=== PATIENT | male | born 1985 | race Caucasian/White ===

== ENCOUNTER 2017-05-24 12:33 | Emergency (ER) | payer OTHER ==
[~2017-05-24] VITALS: Ht 152.4 cm; Wt 60.0 kg
--- NOTE | 2017-05-24 12:51 | PD ---
HPI Chief Complaint: ba Time Seen by Provider: 12:43 Travel History International Travel<30 days: No Contact w/Intl Traveler<30days: No Traveled to known affect area: No History of Present Illness HPI 31-year-old male with history of opiate dependency, presents to emergency department under [place] act for psychiatric evaluation. Patient contracted argument with his mother. He then sent her text messages threatening to hang himself. She contacted police and the patient was brought in for evaluation. Patient states he did say this but he did not need them. He was trying to scare his mother. Denies any suicidal homicidal ideations. States he last used heroin yesterday and is concerned he is going to go into withdrawal while here. She has no other acute medical needs at this time. [facility] Past Medical History Medical History: Denies Significant Hx Social History Alcohol Use: Yes Tobacco Use: Yes Substance Use: Yes Allergies-Medications (Allergen,Severity, Reaction): Coded Allergies: No Known Allergies (Unverified , 05/24/17) Reported Meds & Prescriptions Reported Meds & Active Scripts Active Reported Aspercreme Heat Topical (Menthol Topical) 10 % Gel 1 Applic TOPICAL Q4H PRN Gabapentin 300 Mg Cap 300 Mg PO TID Methocarbamol 500 Mg Tab 250 Mg PO QID PRN Paroxetine (Paroxetine HCl) 20 Mg Tab 20 Mg PO DAILY Seroquel (Quetiapine Fumarate) 50 Mg Tab 50 Mg PO HS Review of Systems Except as stated in HPI: all other systems reviewed are Neg Physical Exam Narrative GENERAL: Well-nourished male patient, ambulatory and in no acute distress. SKIN: Focused skin assessment warm/dry. HEAD: Atraumatic. Normocephalic. EYES: Pupils equal and round. No scleral icterus. No injection or drainage. ENT: No nasal bleeding or discharge. Mucous membranes pink and moist. NECK: Trachea midline. No JVD. CARDIOVASCULAR: Regular rate and rhythm. No murmur appreciated. RESPIRATORY: No accessory muscle use. Clear to auscultation. Breath sounds equal bilaterally. GASTROINTESTINAL: Abdomen soft, non-tender, nondistended. Hepatic and splenic margins not palpable. MUSCULOSKELETAL: No obvious deformities. No clubbing. No cyanosis. No edema. NEUROLOGICAL: Awake and alert. No obvious cranial nerve deficits. Motor grossly within normal limits. Normal speech. Data Data Last Documented VS Vital Signs Date Time Temp Pulse Resp B/P (MAP) Pulse Ox O2 Delivery O2 Flow Rate FiO2 05/24/17 15:46 85 18 125/82 (96) 98 Room Air 05/24/17 14:41 97.6 Orders Orders Complete Blood Count With Diff (05/24/17 12:51) Basic Metabolic Panel (Bmp) (05/24/17 12:51) Psych Screen (05/24/17 12:51) Drug Screen, Random Urine (05/24/17 12:51) Alcohol (Ethanol) (05/24/17 12:51) Labs Laboratory Tests Test 05/24/17 12:55 05/24/17 13:00 Urine Opiates Screen POS Urine Barbiturates Screen NEG Urine Amphetamines Screen NEG Urine Benzodiazepines Screen NEG Urine Cocaine Screen POS Urine Cannabinoids Screen POS White Blood Count 8.6 TH/MM3 Red Blood Count 5.65 MIL/MM3 Hemoglobin 16.1 GM/DL Hematocrit 48.6 % Mean Corpuscular Volume 86.0 FL Mean Corpuscular Hemoglobin 28.6 PG Mean Corpuscular Hemoglobin Concent 33.2 % Red Cell Distribution Width 13.9 % Platelet Count 345 TH/MM3 Mean Platelet Volume 7.4 FL Neutrophils (%) (Auto) 76.4 % Lymphocytes (%) (Auto) 13.6 % Monocytes (%) (Auto) 9.0 % Eosinophils (%) (Auto) 0.2 % Basophils (%) (Auto) 0.8 % Neutrophils # (Auto) 6.5 TH/MM3 Lymphocytes # (Auto) 1.2 TH/MM3 Monocytes # (Auto) 0.8 TH/MM3 Eosinophils # (Auto) 0.0 TH/MM3 Basophils # (Auto) 0.1 TH/MM3 CBC Comment DIFF FINAL Differential Comment Blood Urea Nitrogen 16 MG/DL Creatinine 1.06 MG/DL Random Glucose 171 MG/DL Calcium Level 9.9 MG/DL Sodium Level 137 MEQ/L Potassium Level 4.5 MEQ/L Chloride Level 102 MEQ/L Carbon Dioxide Level 29.8 MEQ/L Anion Gap 5 MEQ/L Estimat Glomerular Filtration Rate 81 ML/MIN Ethyl Alcohol Level LESS THAN 3 MG/DL MDM Medical Decision Making Medical Screen Exam Complete: Yes Emergency Medical Condition: Yes Medical Record Reviewed: Yes Differential Diagnosis Mood disorder versus personality disorder versus polysubstance abuse versus adjustment reaction disorder Narrative Course 31-year-old male presents to the emergency department under [place] act for psychiatric evaluation. Patient appears without distress. His lab work is without acute concern. He is found to have opiates, cocaine, and cannabinoids on his toxicology. He is medically cleared at this time to undergo psychiatric screening for further evaluation and disposition. Mental health screening discussed with the patient. Psychiatric screen ordered. Diagnosis Primary Impression: Adjustment reaction Qualified Codes: F43.25 - Adjustment disorder with mixed disturbance of emotions and conduct Additional Impression: Polysubstance (excluding opioids) dependence Condition: Stable Leatha Blanco May 24, 2017 12:51
[2017-05-24 13:16] LABS: AUTOMATED NEUTROPHIL # 6.5 TH/MM3 (1.8-7.7); BASOPHIL # 0.1 TH/MM3 (0-0.2); BASOPHIL % 0.8 % (0.0-2.0); EOSINOPHIL % 0.2 % (0.0-4.0); HEMATOCRIT 48.6 % (39.0-51.0); HEMOGLOBIN 16.1 GM/DL (13.0-17.0); LYMPH % 13.6 % (9.0-44.0); LYMPHOCYTE # 1.2 TH/MM3 (1.0-4.8); MEAN CORPUSCULAR HEMOGLOBIN 28.6 PG (27.0-34.0); MEAN CORPUSCULAR HGB CONC 33.2 % (32.0-36.0); MEAN PLATELET VOLUME 7.4 FL (7.0-11.0); MONOCYTE # 0.8 TH/MM3 (0-0.9); NEUT % 76.4 % (16.0-70.0); PLATELET COUNT 345 TH/MM3 (150-450); RED BLOOD COUNT 5.65 MIL/MM3 (4.50-5.90); RED CELL DISTRIBUTION WIDTH 13.9 % (11.6-17.2); WHITE BLOOD COUNT 8.6 TH/MM3 (4.0-11.0)
[2017-05-24 13:22] VITALS: BP 123/91; PULSE 89; RESP 18; TEMP 98.7; O2SAT 98
[2017-05-24 13:34] LABS: BICARBONATE 29.8 MEQ/L (21.0-32.0); BLOOD UREA NITROGEN 16 MG/DL (7-18); CALCIUM 9.9 MG/DL (8.5-10.1); CHLORIDE 102 MEQ/L (98-107); CREATININE 1.06 MG/DL (0.60-1.30); GLOMERULAR FILTRATION RATE 81 ML/MIN (>89); GLUCOSE,RANDOM 171 MG/DL (74-106); SODIUM (NA) 137 MEQ/L (136-145)
[2017-05-24 14:41] VITALS: BP 133/86; PULSE 93; RESP 18; TEMP 97.6; O2SAT 99
[2017-05-24] MEDS ORDERED: GABA300C5 PO (15:38)
[2017-05-24] MEDS ORDERED: SERO50TA PO (15:38)
[2017-05-24] MEDS ORDERED: ASPE10GE TOPICAL (15:38)
[2017-05-24] MEDS ORDERED: METH500T3 PO (15:38)
[2017-05-24] MEDS ORDERED: PARO20TA2 PO (15:38)
[2017-05-24 15:46] VITALS: BP 125/82; PULSE 85; RESP 18; O2SAT 98
[2017-05-24 17:58] VITALS: BP 134/82; PULSE 108; RESP 18; TEMP 98.8; O2SAT 99
[2017-05-24] MEDS ORDERED: diphenhydrAMINE HCL 50 MG CAP PO ONE (18:30)
[2017-05-24 23:47] VITALS: BP 123/88; PULSE 84; RESP 17; TEMP 97.3; O2SAT 97
[2017-05-25 02:43] VITALS: BP 155/81; PULSE 97; RESP 16; TEMP 98.7; O2SAT 98
== END 2017-05-25 04:12 ==
LOC: NEPD 12:33 → NEPJ 05-25 04:12
DX: F43.25 Adjustment disorder with mixed disturbance of emotions and conduct (principal); F19.20 Other psychoactive substance dependence, uncomplicated; F14.90 Cocaine use, unspecified, uncomplicated; Z72.0 Tobacco use
CPT/HCPCS: 80048; 80307; 85025; 99284; Q0163